=== PATIENT | female | born 1970 | race Caucasian/White ===

== ENCOUNTER 2016-10-27 13:43 | Outpatient (CLI) ==
[2014-06-02 16:40] VITALS: BMI 30.5
[2016-10-27 13:53] LABS: BASOPHILS % (AUTO) 0.5 % (0.0-3.0); EOSINOPHILS # (AUTO) 0.2 K/ul (0.0-0.7); EOSINOPHILS % (AUTO) 1.9 % (0.0-7.0); HEMATOCRIT 41.2 % (37.0-47.0); HEMOGLOBIN 14.1 g/dl (12.0-16.0); IMMATURE GRANULOCYTE % (AUTO) 0.4 % (0.0-5.0); LYMPHOCYTES # (AUTO) 1.5 K/uL (0.60-3.4); LYMPHOCYTES % (AUTO) 18.7 (10.0-50.0); MEAN CORPUSCULAR HEMOGLOBIN 30.9 pg (27.0-31.0); MEAN CORPUSCULAR HGB CONC 34.2 (31.8-35.4); MEAN CORPUSCULAR VOLUME 90.4 fl (81.0-99.0); MONOCYTES # (AUTO) 0.4 K/uL (0.4-2.0); MONOCYTES % (AUTO) 4.8 (0-10); NEUTROPHILS # (AUTO) 5.9 K/ul (2.0-6.9); NEUTROPHILS % (AUTO) 73.7; PLATELET COUNT 266 10^3/uL (140-440); RED BLOOD COUNT 4.56 10^6/ul (4.20-5.40); WHITE BLOOD COUNT 8.06 K/ul (4.6-10.2)
[2016-10-27 13:56] LABS: BILIRUBIN,URINE Negative (NEGATIVE); KETONES,URINE Negative (NEGATIVE); LEUKOCYTE ESTERASE ,URINE Negative (NEGATIVE); NITRITE,URINE Negative (NEGATIVE); PROTEIN,URINE Negative (NEGATIVE); URINE, BLOOD Trace-lysed (NEGATIVE)
[2016-10-27 13:58] LABS: ADD URINE MICROSCOPIC YES
[2016-10-27 14:06] LABS: ALBUMIN 3.9 g/dL (3.4-5.0); ALBUMIN/GLOBULIN RATIO 0.95; BILIRUBIN,TOTAL 0.53 mg/dL (0.00-1.20); CREATININE 0.76 mg/dL (0.60-1.30)
[2016-10-27 14:07] LABS: BUN/CREATININE RATIO 11.84
--- NOTE | 2016-10-27 14:33 | CT ---
EXAM: CT Abdomen without contrast. CT Pelvis without contrast. HISTORY: Tubulointerstitial nephritis. Right flank pain. Previous urinary tract infection. COMPARISON: 06/02/2014. TECHNIQUE: Multiple axial images of the abdomen and pelvis were obtained without intravenous contra st. Images were reformatted in the coronal plane. FINDINGS: Please note that evaluation of the abdominal and pelvic structures is limited due to lack of intravenous contrast. No acute abnormality identified in the lung bases. No acute osseous abnormality detected. The liver, gallbladder, pancreas, spleen, and adrenal glands demonstrate normal contour. No calcifi ed renal stones or hydronephrosis identified. The bowel is normal in course and caliber without evidence for obstruction or inflammatory process. The appendix is normal. Uterus is absent. Left adnexal cyst measures up to 4.1 cm diameter. Urin kavon bladder is mildly distended. The urinary bladder wall may be mildly thickened, and there is sug gestion of perivesical inflammation. No free fluid or free air identified. Atherosclerotic calcifi cations are present. IMPRESSION: 1. Findings suggestive of cystitis. 2. Left adnexal cyst.
== END 2016-10-27 13:44 | disposition home or self-care (01) ==
LOC: EDBD → MERGE 13:43 → RAD 13:43 → UNMERGE 13:43 → RAD 13:44
PROVIDERS: ATTEND Emergency Medicine
DX: N12 Tubulo-interstitial nephritis, not specified as acute or chronic (principal); R35.0 Frequency of micturition
CPT/HCPCS: 36415; 80053; 81001; 85025

== ENCOUNTER 2016-11-01 15:58 | Observation (INO) ==
[2016-11-01] MEDS ORDERED: SODIUM CHLORIDE 1,000 ML IV SCH (16:30)
[2016-11-01] MEDS ORDERED: TYLENOL PO PRN (16:31)
[2016-11-01] MEDS ORDERED: ATROPINE SULFATE PFS IVP PRN (16:31)
[2016-11-01] MEDS ORDERED: MORPHINE 4 MG/ML SYRINGE IVP PRN (16:31)
[2016-11-01] MEDS ORDERED: VISTARIL INJ IM PRN (16:31)
[2016-11-01] MEDS ORDERED: NITROSTAT SL PRN (16:31)
[2016-11-01] MEDS ORDERED: PROAIR HFA IH PRN (16:40)
[2016-11-01] MEDS ORDERED: PSEUDOEPHEDRINE HCL 120 MG PO PRN (16:40)
[2016-11-01 16:50] LABS: BASOPHILS % (AUTO) 0.4 % (0.0-3.0); EOSINOPHILS # (AUTO) 0.1 K/ul (0.0-0.7); EOSINOPHILS % (AUTO) 1.8 % (0.0-7.0); HEMATOCRIT 36.4 % (37.0-47.0); HEMOGLOBIN 12.6 g/dl (12.0-16.0); IMMATURE GRANULOCYTE % (AUTO) 0.4 % (0.0-5.0); LYMPHOCYTES # (AUTO) 2.1 K/uL (0.60-3.4); LYMPHOCYTES % (AUTO) 30.1 (10.0-50.0); MEAN CORPUSCULAR HGB CONC 34.6 (31.8-35.4); MEAN CORPUSCULAR VOLUME 89.4 fl (81.0-99.0); MONOCYTES # (AUTO) 0.4 K/uL (0.4-2.0); MONOCYTES % (AUTO) 5.3 (0-10); NEUTROPHILS # (AUTO) 4.4 K/ul (2.0-6.9); PLATELET COUNT 233 10^3/uL (140-440); RED BLOOD COUNT 4.07 10^6/ul (4.20-5.40); WHITE BLOOD COUNT 7.11 K/ul (4.6-10.2)
--- NOTE | 2016-11-01 16:55 | DI ---
EXAM: CHEST FRONTAL VIEW HISTORY: Chest pain. COMPARISON: None FINDINGS: Heart size and mediastinum within normal limits. Lungs are free of infiltrate. No c onsolidation or pleural fluid. There is no pneumothorax or acute bony finding. IMPRESSION: Findings within normal limits.
[2016-11-01 17:35] VITALS: BMI 35.4
[2016-11-01 17:48] LABS: ALANINE AMINOTRANSFERASE 16 U/L (12-78); ALBUMIN 3.6 g/dL (3.4-5.0); ALKALINE PHOSPHATASE 76 U/L (42-98); ASPARTATE AMINO TRANSFERASE 12 U/L (15-37); BILIRUBIN,TOTAL 0.25 mg/dL (0.00-1.20); BLOOD UREA NITROGEN 6 mg/dL (7-18); BUN/CREATININE RATIO 9.09; CALCIUM 9.3 mg/dL (8.2-10.2); CARBON DIOXIDE 21 mmol/L (21-32); CHLORIDE 107 mmol/L (98-107); CHOL/HDL RATIO 5.3 (4.5-5.5); CHOLESTEROL 201 mg/dL (0-200); CREATINE KINASE 46 U/L; CREATININE 0.66 mg/dL (0.60-1.30); GLUCOSE 80 mg/dL (70-110); HDL CHOLESTEROL 38 mg/dL (35-80); MYOGLOBIN 11 ng/ml; SODIUM 139 mmol/L (136-145); TOTAL PROTEIN 7.2 g/dL (6.4-8.2); TRIGLYCERIDES 111 mg/dL (30-150); VLDL CHOLESTEROL 22 mg/dL (2-30)
[2016-11-01] MEDS: PROTONIX PO SCH (18:05)
[2016-11-01] MEDS: LOVENOX SUBCUT SCH (18:06)
[2016-11-01 19:25] LABS: BILIRUBIN,URINE Negative (NEGATIVE); KETONES,URINE Negative (NEGATIVE); LEUKOCYTE ESTERASE ,URINE Negative (NEGATIVE); NITRITE,URINE Negative (NEGATIVE); PH,URINE 5.5 (5-9); PROTEIN,URINE Negative (NEGATIVE); URINE, BLOOD 1+ (NEGATIVE)
[2016-11-01 19:40] LABS: ADD URINE MICROSCOPIC YES
[2016-11-01] MEDS ORDERED: CARAFATE ONE (20:36)
[2016-11-01] MEDS: MACROBID PO SCH (20:45)
[2016-11-01] MEDS: CARAFATE PO SCH (20:47)
[2016-11-02 01:26] LABS: CREATINE KINASE 52 U/L; MYOGLOBIN 12 ng/ml
[2016-11-02 04:44] LABS: BASOPHILS % (AUTO) 0.3 % (0.0-3.0); EOSINOPHILS # (AUTO) 0.2 K/ul (0.0-0.7); EOSINOPHILS % (AUTO) 3.3 % (0.0-7.0); HEMATOCRIT 35.1 % (37.0-47.0); HEMOGLOBIN 12.1 g/dl (12.0-16.0); IMMATURE GRANULOCYTE % (AUTO) 0.3 % (0.0-5.0); LYMPHOCYTES # (AUTO) 2.9 K/uL (0.60-3.4); LYMPHOCYTES % (AUTO) 46.4 (10.0-50.0); MEAN CORPUSCULAR HEMOGLOBIN 30.9 pg (27.0-31.0); MEAN CORPUSCULAR HGB CONC 34.5 (31.8-35.4); MEAN CORPUSCULAR VOLUME 89.5 fl (81.0-99.0); MONOCYTES # (AUTO) 0.4 K/uL (0.4-2.0); NEUTROPHILS # (AUTO) 2.8 K/ul (2.0-6.9); NEUTROPHILS % (AUTO) 43.7; PLATELET COUNT 207 10^3/uL (140-440); RED BLOOD COUNT 3.92 10^6/ul (4.20-5.40); WHITE BLOOD COUNT 6.33 K/ul (4.6-10.2)
[2016-11-02 05:03] LABS: ALBUMIN 3.1 g/dL (3.4-5.0); ANION GAP 12.6; BILIRUBIN,TOTAL 0.15 mg/dL (0.00-1.20); BUN/CREATININE RATIO 12.12; CALCIUM 8.7 mg/dL (8.2-10.2); CREATININE 0.66 mg/dL (0.60-1.30); POTASSIUM 3.6 mmol/L (3.5-5.10); TOTAL PROTEIN 6.2 g/dL (6.4-8.2)
[2016-11-02] MEDS ORDERED: CARAFATE ONE (05:34)
[2016-11-02] MEDS: PROTONIX PO SCH (05:49)
[2016-11-02] MEDS: CARAFATE PO SCH (05:51)
[2016-11-02] MEDS ORDERED: SUDAFED PO PRN ×2 (06:57→06:58)
[2016-11-02] MEDS ORDERED: ASPIRIN EC PO SCH (08:00)
[2016-11-02] MEDS: LOVENOX SUBCUT SCH (08:45)
[2016-11-02] MEDS: MACROBID PO SCH (08:45)
[2016-11-02 10:13] VITALS: BP 100/70; TEMP 97.5
--- NOTE | 2016-11-02 11:52 | CONS ---
DATE OF CONSULTATION: 11/01/16 REASON FOR CONSULTATION: Chest pain HISTORY OF PRESENT ILLNESS: The patient is a 45 year old white female was seen in [facility] was complaint of having chest heaviness last three to four days duration. The patient's chest heaviness was more or less constant and unrelated to exertion. The patient says that she has a lot of symptoms of reflux disease and eats Tums like crazy. The patient also gives history of having cardiac work up six years ago when she was having palpation in [place] by [employer]. At that time her ultrasound of the heart and stress test were normal according to her. REVIEW OF SYSTEMS: CONSTITUTIONAL: No night sweats. No fatigue, malaise, lethargy. No fever or chills. HEENT: Eyes: No visual changes. No eye pain. No eye discharge. ENT: No runny nose. No epistaxis. No sinus pain. No sore throat. No odynophagia. No ear pain. No congestion. RESPIRATORY: Mild cough, no congestion. No hemoptysis. CARDIOVASCULAR: No angina symptoms. No CHF symptoms. No atypical chest pain for CAD. No palpitations. No shortness of breath. Chest heaviness and tightness in the center of the chest unrelated to exertion. No radiation. No sweating. No weakness. No PND. No Orthopnea. GASTROINTESTINAL: No abdominal pain. No nausea or vomiting. No diarrhea or constipation. No hematemesis. No hematochezia. Reflux disease type of symptoms all the time off and on day and night. No melena. GENITOURINARY: No urgency. No frequency. No dysuria. No hematuria. No obstructive symptoms. No discharge. No pain. No significant abnormal bleeding. MUSCULOSKELETAL: No musculoskeletal pain. No joint swelling. NEUROLOGICAL: No headache. No neck pain. No syncope. No seizures. No dizziness. PSYCHIATRIC: Not anxious. No depression. No suicidal thoughts. No homicidal thoughts. SKIN: No rash. No lesions. No wounds. ENDOCRINE: No unexplained weight loss. No weight gain. HEMATOLOGIC/LYMPHATIC: No anemia. No purpura. No petechiae. No prolonged or excessive bleeding. No palpable lymph nodes. MEDICATIONS: Albuterol ProAir HFA one puff four times a day PRN Macrobid 100mcg PO twice a day for seven day for UTI Aspirin 81mg PO daily Pseudoephedrine 120mg PRN ALLERGIES:. Sulfa PAST MEDICAL HISTORY/PAST SURGICAL HISTORY: Cystocele's operated upon in April 2016 Chronic lung disease History of sinus problems SOCIAL/PERSONAL/FAMILY HISTORY: The patient is living with the friend and the mother with her kids. She smokes more than a pack a day and no alcohol abuse. No history of drug abuse. She does all activity of daily living. Independent. Family History the patient has history of having brother 46 years of age had massive heart attack and . Father had ME at 39 with five vessel bypass. PHYSICAL EXAMINATION: GENERAL: The patient is oriented to time,place and person. VITAL SIGNS: Temperature 97.2, pulse 68, respiratory rate 18, blood pressure 130 /70 and pulse ox 97%. HEENT: Head normocephalic, atraumatic. Eyes: Extraocular muscles are intact. Pupils are equal, round and reactive to light and accommodation. Ears: No lesions. Nose appeared normal. Throat: No exudate or erythema. NECK: Supple. No JVD, no carotid bruit. No lymphadenopathy or thyromegaly. LUNGS: Clear to auscultation. Percussion note normal. Chest symmetrical. HEART: S1, S2, no S3. No murmurs. No cyanosis or clubbing. No ascites. Pulses: Dorsalis pedis and posterior tibial pulses +2 both sides. PMI not palpable. ABDOMEN: Soft. Nontender. Bowel sounds active. No CVA tenderness. No mass felt. EXTREMITIES: No edema. Full range of motion of all extremities, equal. NEUROLOGIC: No focal deficit. Cranial nerves II through XII are grossly intact. No headache, no double vision or headache. SKIN: Not dry. Intact. Turgor - normal. LYMPHATIC: No palpable lymph nodes/no lymphedema. MUSCULOSKELETAL: Normal joints with no swelling. Muscle tone is normal. LABS: hgb 12.6, hct 36, WBC 7,100 normal differential, creatinine 0.6, BUN 6, potassium 4. Cardiac markers negative. Telemetry sinus rhythm, no ST-T wave changes. EKG sinus rhythm with ST-T wave changes in precordial leads been nonspecific could be ischemia. ASSESSMENT: 1. Chest heaviness and tightness;Risk factors for coronary artery disease, sedentary life style, smoking and strong family history of heart disease, Dyslipidemia and obesity with BMI of 35%. RECOMMENDATIONS: 1. Counseling for smoking done. Advised to quit smoking. 2. With strong history the Non-HDL should be less than 100 discussed with the patient. 3. Will do echocardiogram to evaluate LV function 4. Will do stress echo in the morning with 2D-Mode echo 5. Continue aspirin 6. Agreed with Protonix 7. Will add Carafate 8. All the risk factors for CAD discussed and how to modify them Thanks for referral, will follow. VINEET
[2016-11-02] MEDS ORDERED: LIPITOR PO SCH (21:00)
--- NOTE | 2016-11-03 08:42 | STRESSECHO ---
Date of Test: [] Reason for Exam: [] Ordering Physician: [] Current Medications: [] Physical Findings: [] Resting EKG: [] Target Heart Rate: [] STAGE MPH/GRADE HEART RATE BPM BLOOD PRESSURE mmhg RHYTHM S-T SEGMENT +/- UP DOWN SYMPTOMS,COMMENTS At Rest [] [] [] [] [] 1 1.7/10% [] [] [] [] [] 2 2.5/12% [] [] [] [] [] 3 3.4/14% [] [] [] [] [] 4 4.2/16% [] [] [] [] [] 5 5.0/18% [] [] [] [] [] Immediately after [] [] [] [] [] Durations of Exercise: [] Maximum Heart Rate Reached: [] Reason for Termination: [] Minutes Post Exercise: [] HeartRate: [] Blood Pressure: [] Minutes Post Exercise: [] HeartRate: [] Blood Pressure: [] Minutes Post Exercise: [] HeartRate: [] Blood Pressure: [] INTERPRETATION: 1. [] 2. [] 3. [] 4. [] MTDD
--- NOTE | 2016-11-03 08:53 | ECHOSTRESS ---
Date of Exam: 11/02/16 Ordering Physician: ANA PAULA Reason for Echo: CHEST PAIN, DYSLIPIDEMIA M-Mode Normal Adult Results LV Dimensions Normal Adult Results AoV Opening excursions >1.6 LVEDD-base- 3.5-5.8 Ao root dimensions 2.0-3.7 LVESD-base- 3.1-4.6 L. Atrium dimensions 1.9-3.8 Post. Wall thickness 0.8-1.1 IV septum (thickness) 0.7-1.2 Post. Wall excursion 0.72-1.3 Septal motion Systolic motion R. Ventricular cavity 1.5-2.0 LVEF 60% Paradoxical septal wall motion 2-D: NORMAL LEFT VENTRICULAR CONTRACTILITY--RESTING AND POST EXERCISE M-MODE: MV: AV: TV: PV: CHAMBER SIZE: WALL MOTION: NORMAL LEFT VENTRICULAR CONTRACTILITY--RESTING AND POST EXERCISE PERICARDIUM: INTERPRETATION: 1. NORMAL LEFT VENTRICULAR CONTRACTILITY--RESTING AND POST EXERCISE MTDD
--- NOTE | 2016-11-03 09:01 | STRESSECHO ---
Date of Test: 11/02/16 Reason for Exam: CHEST PAIN Ordering Physician: MINA Current Medications: ALBUTEROL, MACROBID Physical Findings: SINUS RHYTHM/NO ACUTE CHANGES Resting EKG: SINUS RHYTHM/NO ACUTE CHANGES Target Heart Rate: 148/175 STAGE MPH/GRADE HEART RATE BPM BLOOD PRESSURE mmhg RHYTHM S-T SEGMENT +/- UP DOWN SYMPTOMS,COMMENTS At Rest 80 118/72 SR X NONE 1 1.7/10% 130 130/80 SR X NONE 2 2.5/12% 3 3.4/14% 4 4.2/16% 5 5.0/18% Immediately after 152 138/80 SR X FATIGUE Durations of Exercise: 5:01 Maximum Heart Rate Reached: 152 Reason for Termination: FATIGUE 3 MIN POST EXERCISE: HR 80 BPM, BP 120/68 MMHG, SR, +/- INTERPRETATION: 99% OXYGEN SATURATION WITH EXERCISE ON ROOM AIR METS 7.0 1. NO EVIDENCE OF ISCHEMIA BY ST-T WAVE 2. NO CHEST PAIN OR CHEST DISCOMFORT 3. BLOOD PRESSURE RESPONSE NORMAL 4. NO ARRHYTHMIAS NORMAL LEFT VENTRICULAR CONTRACTILITY--RESTING AND POST EXERCISE MTDD
--- NOTE | 2016-11-03 09:05 | ECHO2D ---
Date of Exam: 11/02/16 [facility] Reason for Echo: CHEST PAIN M-Mode Normal Adult Results LV Dimensions Normal Adult Results AoV Opening excursions >1.6 >1.6 LVEDD-base- 3.5-5.8 5.2 Ao root dimensions 2.0-3.7 3.3 LVESD-base- 3.1-4.6 L. Atrium dimensions 1.9-3.8 3.5 Post. Wall thickness 0.8-1.1 1.2 IV septum (thickness) 0.7-1.2 1.2 Post. Wall excursion 0.72-1.3 NORMAL Septal motion NORMAL Systolic motion R. Ventricular cavity 1.5-2.0 NORMAL LVEF 60% 58% Paradoxical septal wall motion NORMAL 2-D : 2-D M Mode Echocardiogram was performed using apical four chamber and left parasternal long and short axis views. Mitral, tricuspid and aortic valves appear to be normal. Contractility of the left ventricle seems to be normal, so is the cavity size. Left atrial cavity size and aortic root appear to be normal. There is no pericardial effusion. There is no thrombus noted in the left ventricular or left aortic cavity. No mitral valve prolapse noted. M-MODE: MV: NORMAL AV: NORMAL TV: NORMAL PV: CHAMBER SIZE: NORMAL WALL MOTION: NORMAL PERICARDIUM: NORMAL INTERPRETATION: 1. BORDERLINE LEFT VENTRICULAR HYPERTROPHY 2. NORMAL VALVES 3. NORMAL LEFT VENTRICULAR CONTRACTILITY MTDD
--- NOTE | 2016-11-03 11:16 | CONS ---
DATE OF SERVICE: 11/02/16 CONSULT FOLLOWUP REASON FOR CONSULTATION: Chest pain. REVIEW OF SYSTEMS: CONSTITUTIONAL: No night sweats. No fatigue, malaise, lethargy. No fever or chills. HEENT: Eyes: No visual changes. No eye pain. No eye discharge. ENT: No runny nose. No epistaxis. No sinus pain. No sore throat. No odynophagia. No ear pain. No congestion. RESPIRATORY: No cough, no congestion. No hemoptysis. CARDIOVASCULAR: No angina symptoms. No CHF symptoms. No chest pain today. No palpitations. No shortness of breath. GASTROINTESTINAL: No abdominal pain. No nausea or vomiting. No diarrhea or constipation. No hematemesis. No hematochezia. GENITOURINARY: No urgency. No frequency. No dysuria. No hematuria. No obstructive symptoms. No discharge. No pain. No significant abnormal bleeding. MUSCULOSKELETAL: No musculoskeletal pain. No joint swelling. No arthritis. NEUROLOGICAL: No headache. No neck pain. No syncope. No seizures. No dizziness. PSYCHIATRIC: Not anxious. No depression. No suicidal thoughts. No homicidal thoughts. SKIN: No rash. No lesions. No wounds. ENDOCRINE: No unexplained weight loss. No weight gain. HEMATOLOGIC/LYMPHATIC: No anemia. No purpura. No petechiae. No prolonged or excessive bleeding. No palpable lymph nodes. PHYSICAL EXAMINATION: GENERAL: The patient is oriented to time, place and person. VITAL SIGNS: Temperature 97, pulse 67, respiratory rate 16, BP 113/72, pulse ox 97%. HEENT: Head normocephalic, atraumatic. Eyes: Extraocular muscles are intact. Pupils are equal, round and reactive to light and accommodation. Ears: No lesions. Nose appeared normal. Throat: No exudate or erythema. NECK: Supple. No JVD, no carotid bruit. No lymphadenopathy or thyromegaly. LUNGS: Clear to auscultation. Percussion note normal. Chest symmetrical. HEART: S1, S2, no S3. No murmurs. No cyanosis or clubbing. No ascites. Pulses: Dorsalis pedis and posterior tibial pulses +1 to +2 both sides. ABDOMEN: Soft. Nontender. Bowel sounds active. No CVA tenderness. No mass felt. EXTREMITIES: No edema. Full range of motion of all extremities, equal. NEUROLOGIC: No focal deficit. Cranial nerves II through XII are grossly intact. No headache, no double vision or headache. SKIN: Not dry. Intact. Turgor - normal. LYMPHATIC: No palpable lymph nodes/no lymphedema. MUSCULOSKELETAL: Normal joints with no swelling. Muscle tone is normal. LAB TESTS: Hemoglobin 12, hematocrit 35, WBC 6,300, normal differential. Creatinine 0.6, BUN 8, potassium 3.6. BNP 39 normal. TSH normal. Echocardiogram - borderline LVH otherwise normal LV contractility. Stress echo - no ischemia. Good exercise tolerance. ASSESSMENT: 1. CHEST PAIN SEEMS TO BE NONCARDIAC WITH NEGATIVE ECHO, STRESS ECHO AND CARDIAC MARKERS. 2. MULTIPLE CAD RISK FACTORS LIKE SMOKING, OBESITY, SEDENTARY LIFESTYLE, STRONG FAMILY HISTORY OF HEART DISEASE, DYSLIPIDEMIA. RECOMMENDATIONS: 1. Discussed with attending. Will start Statin and the goal will be non HDL less than 100. 2. Counseling for smoking done. 3. Weight loss diet counseling done. 4. All the reports discussed with the patient. Followup with primary care advised. CONDITION: Stable. MTDD
--- NOTE | 2016-11-22 12:50 | DS ---
DATE OF SERVICE: 11/02/2016 FINAL DIAGNOSIS: 1. CHEST PAIN, NONCARDIAC 2. DYSLIPIDEMIA 3. FAMILY HISTORY OF CORONARY ARTERY DISEASE 4. PROTEIN C DEFICIENCY 5. HISTORY OF TIA 6. OBESITY 7. HYSTERECTOMY PLAN: 1. Discharge the patient home. 2. Follow up in the [facility] on Tuesday. 3. Outpatient PFT's. 4. Diet-cardiac and healthy. 5. Activity as much as tolerated. DISEASE SPECIFIC EDUCATION: About chest pain, coronary artery disease risk, dyslipidemia and cholesterol and the statin medications and risk myalgia was discussed with the patient in detail. The patient verbalized understanding. HOSPITAL COURSE: Niurka Montenegro is a 45 year old female who came to the office with chest tightness, palpitations and pain going to the left wrist. The patient was worried as she has a strong family history of coronary artery disease. Her father had a heart attack at the age of 45. In view of such a risk factor, the patient was admitted to observation to [facility]. We did the lipid profile, TSH and Dr. Hernandez consultation. He was gracious enough to come and see the patient and ordered the stress test and echocardiogram. The patient was given some Protonix and Carafate, which did resolve the pain. Two set of cardiac enzymes were negative. Total cholesterol was 201, TSH 1.021. Echo and stress echo was negative for any acute coronary problems. Ejection fraction was normal. The patient was discussed about lifestyle modification, weight loss and diet. The patient did tell that she has really bad acid reflux for which she eats almost 20 TUMS every day. Lifestyle modification, weight loss and diet was discussed again. She will be started on Lipitor 10 mg p.o. daily, Carafate hc and hs and Zantac 150 p.o. twice daily. We will be seeing the patient in the [facility] within one week. Time spent on the patient is more than 55-60 minutes today. VINEET
== END 2016-11-02 12:45 | disposition home or self-care (01) ==
LOC: EDBD → MERGE 15:58 → UNMERGE 15:58 → MEDSURG B 15:58
PROVIDERS: ADMIT Emergency Medicine; ATTEND Emergency Medicine
DX: R07.89 Other chest pain (principal); E78.5 Hyperlipidemia, unspecified; Z82.49 Family history of ischemic heart disease and other diseases of the circulatory system; D68.59 Other primary thrombophilia; E66.9 Obesity, unspecified; F17.200 Nicotine dependence, unspecified, uncomplicated; Z86.73 Personal history of transient ischemic attack (TIA), and cerebral infarction without residual deficits
CPT/HCPCS: 36415; 80053; 80061; 81001; 82550; 83874; 83880; 84443; 84484; 85025; 85379; 93005; 93010

== ENCOUNTER 2016-11-05 09:04 | Outpatient (CLI) | END 2016-11-05 09:05 | disposition home or self-care (01) | LOC: CAR 09:04 | PROVIDERS: ATTEND Emergency Medicine | DX: R06.02 Shortness of breath (principal); R05 Cough ==

== ENCOUNTER 2017-01-10 08:14 | Outpatient (CLI) ==
--- NOTE | 2017-01-10 08:48 | US ---
EXAM: Right upper quadrant abdominal ultrasound. History: Right upper quadrant abdominal pain. Comparison: CT abdomen pelvis 10/27/2016 Technique: Multiple sonographic images through the abdomen were obtained. Color duplex Doppler was used to interrogate vascular flow. Findings: The liver is not enlarged. No focal liver lesions identified sonographically. There is antegrade fl ow within the main portal vein. Pancreas is not well visualized due to obscuration by bowel gas. No shadowing gallstones. Gallbladder wall is not thickened. Common bile duct measures 0.0 4 cm in c aliber. Limited visualization of the right kidney demonstrates no evidence for hydronephrosis. No a bdominal ascites. Impression: Unremarkable exam.
== END 2017-01-10 08:15 | disposition home or self-care (01) ==
LOC: RAD 08:14
PROVIDERS: ATTEND Emergency Medicine
DX: R10.11 Right upper quadrant pain (principal)

== ENCOUNTER 2017-01-21 09:02 | Outpatient (CLI) ==
--- NOTE | 2017-01-21 09:41 | DI ---
EXAM: Chest two views HISTORY: Bronchitis, nonspecified as acute or chronic COMPARISON: 11/01/2016 TECHNIQUE: Two views of the chest were performed FINDINGS: The lungs are clear. There is no pleural effusion or pneumothorax. The heart is normal i n size. The mediastinal contour is normal. There are no acute abnormalities of the bones. IMPRESSION: No acute cardiopulmonary process.
== END 2017-01-21 09:03 | disposition home or self-care (01) ==
LOC: RAD 09:02
PROVIDERS: ATTEND Nurse Practitioner Family
DX: J40 Bronchitis, not specified as acute or chronic (principal)

== ENCOUNTER 2017-12-20 12:20 | Outpatient (CLI) | END 2017-12-20 12:21 | disposition home or self-care (01) | LOC: RHC-LAB 12:20 | PROVIDERS: ATTEND Nurse Practitioner Family | DX: S30.860A Insect bite (nonvenomous) of lower back and pelvis, initial encounter (principal); R53.83 Other fatigue; W57.XXXA Bitten or stung by nonvenomous insect and other nonvenomous arthropods, initial encounter | CPT/HCPCS: 36415; 80053; 85025; 86617; 86757; 87798 ==

== ENCOUNTER 2018-01-14 21:25 | Emergency (ER) ==
[2018-01-14 21:36] VITALS: BP 169/100; TEMP 98.6; BMI 33.7
[2018-01-14] MEDS ORDERED: ZOFRAN 4 MG/2 ML IVP STA (22:18)
[2018-01-14] MEDS ORDERED: PROTONIX IV IVP STA (22:18)
[2018-01-14] MEDS ORDERED: MORPHINE 4 MG/ML VIAL IVP STA (22:18)
[2018-01-14] MEDS ORDERED: SODIUM CHLORIDE 1,000 ML IV STA (22:18)
[2018-01-14] MEDS ORDERED: MORPHINE 2 MG/ML SYRINGE ONE (22:22)
--- NOTE | 2018-01-14 22:27 | ED.PDOC ---
General ED Provider: Dr. ADAMARIS HALE Chief Complaint: Chest Pain Stated Complaint: Patient is a 47 year old who comes to the ER with complaints of chest pain off and on for 3 days. Rates that pain as 5/10, describes it as Pressure with radiation to the left and down to the left thumb. Time Seen by Physician: 22:00 Mode of Arrival: Walk-In Information Source: Patient Primary Care Provider: [facility] Nursing and Triage Documentation Reviewed and Agree: Yes Does patient meet sepsis criteria?: No System Inflammatory Response Syndrome: Not Applicable Sepsis Protocol: For patient's 13 years and over: Temp is 96.8 and below OR 101 and greater Pulse >90 BPM Resp >20/minute Acutely Altered Mental Status Are patient's symptoms suggestive of a new infection, such as: -Pneumonia -Skin, Soft Tissue -Endocarditis -UTI -Bone, Joint Infection -Implantable Device -Acute Abdominal Infection -Wound Infection -Meningitis -Blood Stream Catheter Infection -Unknown Cardiovascular Complaint Exam - Chest Pain Complaint/Exam Onset: Gradual Duration: 2-3 days Symptoms Are: Still present Timing: Intermittent Initial Severity: Severe Current Severity: Moderate Location: Reports: Midsternal Pain Radiates: Reports: Back, Left shoulder, Left arm Character: Reports: Heaviness Aggravating: Reports: None Alleviating: Reports: Spontaneous resolution (but only partially ) Associated Signs and Symptoms: Reports: Nausea, Abdominal pain (epigastric area ). Denies: Diaphoresis, Vomiting Related Surgical History: Reports: None AMI/ACS Risk Factors: Reports: Family history, Smoking, Dyslipidemia TAD Risk Factors: Reports: Smoking Pulmonary Embolism Risk Factors: Reports: None Prior Care for this Complaint: No Recent Stress Test: No Recent Echo/LV Function: No JVD Present: No Subcutaneous Emphysema Present: No Diminshed Breath Sounds: No Reproducible Chest Wall Pain: No Bilateral Pulses Present: No Unequal Pulses Noted: No If Risk Factors for AMI/ACS Consider: EKG, Cardiac Enzymes, Oxygen Review of Systems - Review Of Systems Constitutional: Reports: No symptoms Respiratory: Reports: No symptoms Cardiac: Reports: Chest pain GI: Reports: Abdominal pain, Nausea, Poor appetite : Reports: No symptoms Musculoskeletal: Reports: No symptoms Skin: Reports: No symptoms Neurological: Reports: Anxiety Endocrine: Reports: No symptoms Hematologic/Lymphatic: Reports: No symptoms All Other Systems: Reviewed and Negative Past Medical History - Past Medical History Endocrine: Reports: DM 2 (gestational ), Dyslipidemia Cardiovascular: Reports: None Respiratory: Reports: None Hematological: Reports: None Gastrointestinal: Reports: GERD Genitourinary: Reports: None Neuro/Psych: Reports: Anxiety Musculoskeletal: Reports: None Cancer: Reports: Breast Last Menstrual Period: PT HAS HAD A HYSTERECTOMY - Surgical History General Surgical History: Reports: Hysterectomy, Tubal ligation, Other (breast lumpectomy, Right eye lens replacement. ) - Family History Family History: Reports: Unknown - Social History Smoking Status: Current every day smoker, Heavy tobacco smoker Hx Substance Use: No Alcohol Screening: Occasionally - Immunizations Tetanus Shot up to Date: Yes Physical Exam - Physical Exam Appearance: Ill-appearing Ill-appearing: Mild Pain Distress: Moderate Neck: Supple Respiratory: Airway patent, Breath sounds clear, Breath sounds equal, Respirations nonlabored Cardiovascular: RRR, Pulses normal, No rub, No murmur GI/: Soft, Nontender, No masses, Bowel sounds normal, No Organomegaly Musculoskeletal: Normal strength, ROM intact, No edema, No calf tenderness Skin: Warm, Dry, Normal color Neurological: Alert, Oriented Psychiatric: Anxious Interpretation - Radiology Interpretation Radiology Interpretation By: ED Physician Radiology Results: Negative Exam Interpreted: CXR Radiology Interpretation By: Radiologist Radiology Results: Negative (except fecal statis) Exam Interpreted: CT Scan (Abdomen and Pelvis ) - EKG Interpretation Time of EKG #1: 21:52 Rate: Normal Rhythm: Sinus Ectopy: None Alexander: NL ST Segment: Other (T wake inversion on V1 , V2, V3) Interpretation: Anterior ischemia EKG Comparison: No significant changes (from on done in 03/01/2017) Re-Evaluation - Re-Evaluation Time of Re-Evaluation: 00:30 Status: Improved Vital Signs Stable: Yes Pain Level: pain gone immediatly after taking GI cocktail. Critical Care Note - Critical Care Note Total Time (mins): 35 Comments: reviewed Lab data and previous stress test and EKG done in 2017 Course - Course Hematology/Chemistry: 01/14/18 22:25 01/14/18 22:25 Orders, Labs, Meds: Lab Review 01/14/18 01/14/18 01/14/18 22:25 22:25 22:25 WBC 9.07 RBC 4.23 Hgb 13.1 Hct 38.3 MCV 90.5 MCH 31.0 MCHC 34.2 RDW Coeff of Jose 12.9 Plt Count 224 Immature Gran % (Auto) 0.3 Neut % (Auto) 50.3 Lymph % (Auto) 40.0 [place] % (Auto) 6.2 Eos % (Auto) 2.9 Baso % (Auto) 0.3 Immature Gran # (Auto) 0.0 Neut # (Auto) 4.6 Lymph # (Auto) 3.6 H [place] # (Auto) 0.6 Eos # (Auto) 0.3 Baso # (Auto) 0.0 D-Dimer (Manual) 436.38 Sodium 138.0 Potassium 3.63 Chloride 104.3 Carbon Dioxide 26.7 Anion Gap 10.63 BUN 17.7 H Creatinine 0.91 Estimated GFR (MDRD) 66.00 BUN/Creatinine Ratio 19.45 Glucose 99.0 Calcium 9.58 Total Bilirubin 0.23 AST 36.8 H ALT 17.6 Alkaline Phosphatase 71.4 Total Creatine Kinase 43.7 Troponin I < 0.012 Total Protein 7.92 Albumin 4.10 Globulin 3.82 Albumin/Globulin Ratio 1.07 Amylase 63.1 Lipase 60.8 Urine Color Urine Clarity Urine pH Ur Specific [place] Urine Protein Urine Glucose (UA) Urine Ketones Urine Blood Urine Nitrite Urine Bilirubin Urine Urobilinogen Ur Leukocyte Esterase Urine Microscopic RBC Ur Squamous Epith Cells 01/14/18 01/15/18 22:50 00:15 WBC RBC Hgb Hct MCV MCH MCHC RDW Coeff of Jose Plt Count Immature Gran % (Auto) Neut % (Auto) Lymph % (Auto) [place] % (Auto) Eos % (Auto) Baso % (Auto) Immature Gran # (Auto) Neut # (Auto) Lymph # (Auto) [place] # (Auto) Eos # (Auto) Baso # (Auto) D-Dimer (Manual) Sodium Potassium Chloride Carbon Dioxide Anion Gap BUN Creatinine Estimated GFR (MDRD) BUN/Creatinine Ratio Glucose Calcium Total Bilirubin AST ALT Alkaline Phosphatase Total Creatine Kinase Troponin I < 0.012 Total Protein Albumin Globulin Albumin/Globulin Ratio Amylase Lipase Urine Color Yellow Urine Clarity Clear Urine pH 6.0 Ur Specific [place] 1.010 Urine Protein Negative Urine Glucose (UA) Negative Urine Ketones Negative Urine Blood 1+ Urine Nitrite Negative Urine Bilirubin Negative Urine Urobilinogen 0.2 Ur Leukocyte Esterase Negative Urine Microscopic RBC 0-2 Ur Squamous Epith Cells 2-5 Orders Category Date Time Status EKG-(ED ONLY) Stat CARDIO 01/14/18 22:19 Completed ED IV/MEDIPORT/POWERPORT .ONCE EMERGENCY 01/14/18 22:18 Active AMYLASE Stat LAB 01/14/18 22:25 Completed CBC W/ AUTO DIFF Stat LAB 01/14/18 22:25 Completed COMPREHENSIVE METABOLIC PANEL Stat LAB 01/14/18 22:25 Completed CREATINE KINASE Stat LAB 01/14/18 22:25 Completed D-DIMER Stat LAB 01/14/18 22:25 Completed LIPASE Stat LAB 01/14/18 22:25 Completed TROPONIN I Stat LAB 01/14/18 22:25 Completed TROPONIN I Stat LAB 01/15/18 00:15 Completed URINALYSIS C & S IF INDICATED Stat LAB 01/14/18 22:50 Completed 0.9 % Sodium Chloride [Saline Flush] MEDS 01/14/18 22:18 Ordered 1 syr IVF PRN PRN Mag-Al Plus//Lidocaine [Gi Cocktail] MEDS 01/14/18 23:39 Discontinued 30 ml PO ONCE STA Morphine Sulfate [Morphine 2 mg/ml Syringe] MEDS 01/14/18 22:22 Discontinued 4 mg .ROUTE .STK-MED ONE Morphine Sulfate [Morphine 4 mg/ml Vial] MEDS 01/14/18 22:18 Discontinued 4 mg IVP ONCE STA Nitroglycerin [Nitrostat] MEDS 01/14/18 23:23 Discontinued 0.4 mg SL ONCE STA Ondansetron HCl/Pf [Zofran 4 mg/2 ml] MEDS 01/14/18 22:18 Discontinued 4 mg IVP ONCE STA Pantoprazole Sodium [Protonix IV] MEDS 01/14/18 22:18 Discontinued 40 mg IVP ONCE STA Sodium Chloride 0.9% [Sodium Chloride] 1,000 ml MEDS 01/14/18 22:18 Discontinued IV BOLUS CHEST, 2 VIEWS PA & LAT Stat RADS 01/14/18 22:[address] ABD/PEL WO RENAL STONE PROT Stat RADS 01/14/18 22:18 Completed Medications Generic Name Dose Route Start Last Admin Trade Name Freq PRN Reason Stop Dose Admin Sodium Chloride 1 syr 01/14/18 22:18 01/14/18 22:49 Saline Flush IVF 1 syr PRN PRN Administration To flush IV Discontinued Medications Generic Name Dose Route Start Last Admin Trade Name Freq PRN Reason Stop Dose Admin Al Hydroxide/Mg Hydroxide 30 ml 01/14/18 23:39 01/14/18 23:43 Gi Cocktail PO 01/14/18 23:40 30 ml ONCE STA Administration Sodium Chloride 1,000 mls @ 1,000 mls/hr 01/14/18 22:18 01/14/18 22:41 Sodium Chloride IV 01/14/18 23:17 1,000 mls/hr BOLUS STA Administration Morphine Sulfate 4 mg 01/14/18 22:18 Morphine 4 Mg/Ml Vial IVP 01/14/18 22:19 ONCE STA Nitroglycerin 0.4 mg 01/14/18 23:23 01/14/18 23:27 Nitrostat SL 01/14/18 23:24 0.4 mg ONCE STA Administration Ondansetron HCl 4 mg 01/14/18 22:18 01/14/18 22:44 Zofran 4 Mg/2 Ml IVP 01/14/18 22:19 4 mg ONCE STA Administration Pantoprazole Sodium 40 mg 01/14/18 22:18 01/14/18 22:46 Protonix Iv IVP 01/14/18 22:19 40 mg ONCE STA Administration Vital Signs: Temp Pulse Resp BP Pulse Ox 01/14/18 21:25 98.6 F 87 18 169/100 H 96 SAMARIA Risk Score Age >/= 65: No >/= 3 CAD Risk Factors: No Known CAD (Stenosis >/= 50%): No ASA Use in Past 7 Days: Yes Severe Angina (>/= 2 episodes in 24 hours): Yes EKG ST Changes >/= 0.5mm: No Postive Cardiac Marker: No SAMARIA Total Score: 2 SAMARIA Risk Score: Risk Score Odds of by 30D 0 0.1 (0.1-0.2) 1 0.3 (0.2-0.3) 2 0.4 (0.3-0.5) 3 0.7 (0.6-0.9) 4 1.2 (1.0-1.5) 5 2.2 (1.9-2.6) 6 3.0 (2.5-3.6) 7 4.8 (3.8-6.1) Departure - Departure Time of Disposition: 00:52 Disposition: HOME SELF-CARE Discharge Problem: Dyspepsia Instructions: Indigestion (ED) Condition: Stable Pt referred to PMD for follow-up: Yes IPMP verified?: No Additional Instructions: Take Bentyl as needed for cramping Continue Omeprozole as prescribed. Return if worse Follow up with PCP in 3 days. Prescriptions: Dicyclomine HCl [Bentyl] 10 mg PO TID PRN #20 capsule PRN Reason: Abdominal Pain Allergies/Adverse Reactions: Allergies Sulfa (Sulfonamide Antibiotics) Allergy (Severe, Verified 01/14/18 21:36) stomach pains Home Medications: Ambulatory Orders Aspirin [Aspir 81] 81 mg PO DAILY tab-cap 11/01/16 Atorvastatin Calcium [Lipitor] 10 mg PO BEDTIME #30 tablet 11/02/16 Omeprazole 20 mg PO DAILY PRN 01/14/18 Dicyclomine HCl [Bentyl] 10 mg PO TID PRN #20 capsule 01/15/18 Disposition Discussed With: Patient, Family
--- NOTE | 2018-01-14 23:05 | CT ---
EXAM: CT of the abdomen and pelvis without contrast. HISTORY: Abdominal pain radiating to back. PROCEDURE: Contiguous axial CT images of the abdomen and pelvis without contrast with coronal and sa gittal reformats. FINDINGS: The liver, gallbladder, pancreas, spleen, adrenal glands and kidneys are normal in appearan ce. No nephrolithiasis or hydronephrosis. The ureters are incompletely visualized. The abdominal ao rta is within normal limits in diameter. The appendix is normal in appearance. There is fecal stasis in the colon. No bowel obstruction. No free fluid or free air in the abdomen or pelvis. The bladde r is adequately filled with no abnormality identified. The uterus is surgically absent. There is a 4. 1 cm fluid density cyst in the left adnexa. There are phleboliths in the lower pelvis. The bones and soft tissues are unremarkable. Impression: 4.1 cm simple left adnexal cyst. Fecal stasis in the colon. No nephrolithiasis or hydronephrosis. The ureters are incompletely visualized and a nonobstructive u reterolith cannot be excluded. Hysterectomy.
[2018-01-14] MEDS ORDERED: NITROSTAT SL STA (23:23)
[2018-01-14] MEDS ORDERED: GI COCKTAIL PO STA (23:39)
--- NOTE | 2018-01-15 06:02 | DI ---
Exam: Two views of the chest. Comparison: 01/21/2017. Reason for exam: Chest pain. FINDINGS: No pneumothorax, pleural effusion, or focal consolidation. The cardiac silhouette is not enlarged. The imaged osseous structures appear grossly unremarkable without acute fracture. Impression: No acute cardiopulmonary process.
== END 2018-01-15 01:04 | disposition home or self-care (01) ==
LOC: ED 21:25
DX: R10.13 Epigastric pain (principal); R07.9 Chest pain, unspecified; E78.5 Hyperlipidemia, unspecified; F17.210 Nicotine dependence, cigarettes, uncomplicated
CPT/HCPCS: 36415; 74176; 80053; 81001; 82150; 82550; 83690; 84484; 85025; 85379; 93005; 93010; 96361; 96374; 96375; 99283

== ENCOUNTER 2018-02-21 15:38 | Outpatient (CLI) | END 2018-02-21 15:39 | disposition home or self-care (01) | LOC: RHC-LAB 15:38 | PROVIDERS: ATTEND Nurse Practitioner Family | DX: R05 Cough (principal); J02.9 Acute pharyngitis, unspecified | CPT/HCPCS: 87502; 87651 ==

== ENCOUNTER 2018-11-30 19:12 | Observation (INO) ==
[2018-11-30] MEDS ORDERED: ZOFRAN 4 MG/2 ML IVP STA (19:23)
[2018-11-30] MEDS ORDERED: SODIUM CHLORIDE 1,000 ML IV STA (19:23)
[2018-11-30] MEDS ORDERED: NITROSTAT SL STA (19:24)
--- NOTE | 2018-11-30 19:25 | ED.PDOC ---
General ED Provider: Dr. ADAMARIS HALE Chief Complaint: Chest Pain Stated Complaint: Patient is a 47 year old female who comes to the ER with a one week history of chest pain mostly after she eats. She stopped taking prilosec two weeks ago, Also use to take carafate but quit that too. She is heavy smoker but has been trying to cut back. Time Seen by Physician: 19:22 Exam Limitations: No limitations Primary Care Provider: CHIKIS MCCLAIN Nursing and Triage Documentation Reviewed and Agree: Yes Does patient meet sepsis criteria?: Yes If yes, has appropriate treatment been initiated?: No System Inflammatory Response Syndrome: Not Applicable Sepsis Protocol: For patient's 13 years and over: Temp is 96.8 and below OR 101 and greater Pulse >90 BPM Resp >20/minute Acutely Altered Mental Status Are patient's symptoms suggestive of a new infection, such as: -Pneumonia -Skin, Soft Tissue -Endocarditis -UTI -Bone, Joint Infection -Implantable Device -Acute Abdominal Infection -Wound Infection -Meningitis -Blood Stream Catheter Infection -Unknown Cardiovascular Complaint Exam - Chest Pain Complaint/Exam Onset: Gradual Duration: 1 week Symptoms Are: Still present Timing: Intermittent Initial Severity: Severe Current Severity: Moderate Location: Reports: Left anterior Pain Radiates: Reports: Left shoulder, Left arm, Neck Character: Reports: Heaviness, Pressure Aggravating: Reports: None (but noticed few minutes after eating. ) Alleviating: Reports: None Associated Signs and Symptoms: Reports: Diaphoresis, Nausea, Palpitations, Short of air (associated with anxiety ). Denies: Vomiting, Cough Related History: Reports: Similar episode AMI/ACS Risk Factors: Reports: Obesity, Hypertension, Smoking Pulmonary Embolism Risk Factors: Reports: None Prior Care for this Complaint: No Recent Stress Test: Yes (two years ago ) Recent Echo/LV Function: No JVD Present: No Subcutaneous Emphysema Present: No Diminshed Breath Sounds: No Reproducible Chest Wall Pain: No Bilateral Pulses Present: No Unequal Pulses Noted: No If Risk Factors for AMI/ACS Consider: EKG, Cardiac Enzymes, Serial Studies, Oxygen, Aspirin Used Equipment Sales Representative Consulted: No Differential Diagnoses: Acute NC, ACS, Stable Angina, Chest Wall Pain, GI Diseasae Quality Indicators For Acute NC or Cardiac Chest Pain: EKG in 10min. Quality Indicator For Non-Traumatic Chest Pain/Syncope: EKG Performed Patient Advised to Stop Smoking: Yes Review of Systems - Review Of Systems Constitutional: Reports: No symptoms Eyes: Reports: No symptoms Ears, Nose, Mouth, Throat: Reports: No symptoms Respiratory: Reports: No symptoms Cardiac: Reports: Chest pain GI: Reports: Nausea. Denies: Vomiting : Reports: No symptoms Musculoskeletal: Reports: No symptoms Skin: Reports: No symptoms Neurological: Reports: Anxiety Endocrine: Reports: No symptoms Hematologic/Lymphatic: Reports: No symptoms All Other Systems: Reviewed and Negative Past Medical History - Past Medical History Endocrine: Reports: DM 2 (gestational ), Dyslipidemia Cardiovascular: Reports: None Respiratory: Reports: None Hematological: Reports: None Gastrointestinal: Reports: GERD Genitourinary: Reports: None Neuro/Psych: Reports: Anxiety Musculoskeletal: Reports: None Cancer: Reports: Breast - Surgical History General Surgical History: Reports: Hysterectomy, Tubal ligation, Other (breast lumpectomy, Right eye lens replacement. ) - Family History Family History: Reports: Unknown - Social History Smoking Status: Current every day smoker, Heavy tobacco smoker Hx Substance Use: No Alcohol Screening: Occasionally Physical Exam - Physical Exam Appearance: Ill-appearing, Obese Ill-appearing: Moderate Pain Distress: Moderate Eyes: LORENZA, EOMI, Conjunctiva clear ENT: Ears normal, Nose normal, Oropharynx normal Respiratory: Airway patent, Breath sounds clear, Breath sounds equal, Respirations nonlabored Cardiovascular: RRR, Pulses normal, No rub, No murmur GI/: Soft, Nontender, No masses, Bowel sounds normal, No Organomegaly Musculoskeletal: Normal strength, ROM intact, No edema, No calf tenderness Skin: Warm, Dry Neurological: Sensation intact, Motor intact, Alert, Oriented Psychiatric: Anxious Interpretation - Radiology Interpretation Radiology Interpretation By: ED Physician Radiology Results: Negative Exam Interpreted: Portable CXR - Peanut Farmer Rate: Normal Rhythm: Sinus Ectopy: None - EKG Interpretation Time of EKG #1: 19:19 Rate: Normal Rhythm: Sinus Ectopy: None ST Segment: Other (T- wave abnormaliites on V1-v3) Interpretation: Left Atrial Enlargement EKG Comparison: No significant changes (compared one done in dec 2017) Re-Evaluation - Re-Evaluation Time of Re-Evaluation: 19:55 Status: Improved Vital Signs Stable: Yes - Re-Evaluation Time of Re-Evaluation: 21:50 Status: Improved Vital Signs Stable: Yes Pain Level: pain gone Physician Notification - Case Discussed Physician Notified: Dr. Hernandez Time of Notification: 21:44 (admit and order Echo and Stress Echo with sestamibi for the morning. Place on Carafate and PPI) Critical Care Note - Critical Care Note Total Time (mins): 45 Course - Course Hematology/Chemistry: 11/30/18 19:28 11/30/18 19:28 Orders, Labs, Meds: Lab Review 11/30/18 11/30/18 11/30/18 19:25 19:28 19:28 WBC 7.70 RBC 4.16 L Hgb 12.8 Hct 37.3 MCV 89.7 MCH 30.8 MCHC 34.3 RDW Coeff of Jose 12.7 Plt Count 236 Immature Gran % (Auto) 0.3 Neut % (Auto) 57.0 Lymph % (Auto) 34.4 [place] % (Auto) 6.5 Eos % (Auto) 1.3 Baso % (Auto) 0.5 Immature Gran # (Auto) 0.0 Neut # (Auto) 4.4 Lymph # (Auto) 2.7 [place] # (Auto) 0.5 Eos # (Auto) 0.1 Baso # (Auto) 0.0 D-Dimer (Manual) 336.85 Sodium 138.9 Potassium 3.52 Chloride 101.6 Carbon Dioxide 26.4 Anion Gap 14.42 BUN 9.2 Creatinine 0.71 Estimated GFR (MDRD) 88.00 BUN/Creatinine Ratio 12.95 Glucose 84.9 Calcium 10.10 Total Bilirubin 0.50 AST 36.0 ALT 20.6 Alkaline Phosphatase 80.5 Total Creatine Kinase 39.7 Troponin I < 0.012 Total Protein 8.25 H Albumin 4.58 Globulin 3.67 Albumin/Globulin Ratio 1.24 Orders Category Date Time Status ECHOCARDIOGRAM 2D-M MODE Routine CARDIO 11/30/18 21:42 Ordered EKG-(ED ONLY) Stat CARDIO 11/30/18 19:23 Completed EKG-(IP & OP ONLY) Routine CARDIO 12/01/18 06:00 Ordered ACTIVITY .Up ad [place]ina CARE 11/30/18 21:43 Ordered INTAKE & OUTPUT Q8HR CARE 11/30/18 21:42 Ordered NPO REMINDER: IMAGING ONCE CARE 11/30/18 21:48 Ordered VITAL SIGNS Q4HR CARE 11/30/18 21:42 Ordered CARDIAC DIET DIETARY 11/30/18 Lunch Ordered ED APPLY O2 .ONCE EMERGENCY 11/30/18 19:23 Active ED IV/MEDIPORT/POWERPORT .ONCE EMERGENCY 11/30/18 19:23 Active CBC W/ AUTO DIFF DAILY@0600 LAB 12/01/18 06:00 Ordered CBC W/ AUTO DIFF DAILY@0600 LAB 12/02/18 06:00 Ordered CBC W/ AUTO DIFF Stat LAB 11/30/18 19:28 Completed CMP [COMPREHENSIVE METABOLIC PANEL] Stat LAB 11/30/18 19:28 Completed CREATINE KINASE Q8H LAB 12/01/18 03:45 Ordered CREATINE KINASE Q8H LAB 12/01/18 11:45 Ordered CREATINE KINASE Stat LAB 11/30/18 19:28 Completed D-DIMER Stat LAB 11/30/18 19:25 Completed PT WITH INR DAILY@0600 LAB 12/01/18 06:00 Ordered PT WITH INR DAILY@0600 LAB 12/02/18 06:00 Ordered TROPONIN I Q8H LAB 12/01/18 03:45 Ordered TROPONIN I Q8H LAB 12/01/18 11:45 Ordered TROPONIN I Stat LAB 11/30/18 19:28 Completed 0.9 % Sodium Chloride [Saline Flush] MEDS 11/30/18 19:23 Ordered 1 syr IVF PRN PRN Acetaminophen [Tylenol] MEDS 11/30/18 21:42 Ordered 650 mg PO Q4H PRN Aspirin [Aspirin Chewable] MEDS 11/30/18 19:35 Discontinued 162 mg PO ONCE STA Enoxaparin Sodium [Lovenox] MEDS 12/01/18 09:00 Ordered 40 mg SUBCUT DAILY Esomeprazole Sodium [Nexium IV] MEDS 12/01/18 09:00 Ordered 40 mg IVP BID Esomeprazole Sodium [Nexium IV] MEDS 11/30/18 19:35 Discontinued 40 mg IVP ONCE STA Mag-Al Plus//Lidocaine [Gi Cocktail] MEDS 11/30/18 19:35 Discontinued 30 ml PO ONCE STA Morphine Sulfate [Morphine 2 mg/ml Syringe] MEDS 11/30/18 21:42 Ordered 2 mg IVP Q4H PRN Nitroglycerin [Nitrostat] MEDS 11/30/18 19:24 Discontinued 0.4 mg SL ONCE STA Ondansetron HCl/Pf [Zofran 4 mg/2 ml] MEDS 11/30/18 19:23 Discontinued 4 mg IVP ONCE STA Ondansetron HCl/Pf [Zofran 4 mg/2 ml] MEDS 11/30/18 21:42 Ordered 4 mg IVP Q6H PRN Sodium Chloride 0.9% [Sodium Chloride] 1,000 ml MEDS 11/30/18 19:23 Active IV 75 mls/hr Sodium Chloride 0.9% [Sodium Chloride] 1,000 ml MEDS 11/30/18 22:00 Ordered IV 75 mls/hr Sucralfate [Carafate] MEDS 11/30/18 22:00 Ordered 1 gm PO QID RESUSCITATION STATUS Routine OTHERS 11/30/18 21:42 Ordered CHEST, 1V AP ONLY Stat RADS 11/30/18 19:23 Completed SEST HRT REST/STRESS/ NUC MED Routine RADS 12/01/18 07:00 Ordered Medications Generic Name Dose Route Start Last Admin Trade Name Freq PRN Reason Stop Dose Admin Acetaminophen 650 mg 11/30/18 21:42 Tylenol PO Q4H PRN Fever > 102 Enoxaparin Sodium 40 mg 12/01/18 09:00 Lovenox SUBCUT DAILY [place] Esomeprazole Magnesium 40 mg 12/01/18 09:00 Nexium Iv IVP BID [place] Sodium Chloride 1,000 mls @ 75 mls/hr 11/30/18 19:23 11/30/18 19:36 Sodium Chloride IV 12/01/18 08:42 75 mls/hr .[id number] STA Administration Sodium Chloride 1,000 mls @ 75 mls/hr 11/30/18 22:00 Sodium Chloride IV .[id number] [place] Morphine Sulfate 2 mg 11/30/18 21:42 Morphine 2 Mg/Ml Syringe IVP Q4H PRN Severe Pain Ondansetron HCl 4 mg 11/30/18 21:42 Zofran 4 Mg/2 Ml IVP Q6H PRN Nausea / Vomiting Sodium Chloride 1 syr 11/30/18 19:23 11/30/18 19:36 Saline Flush IVF 1 syr PRN PRN Administration To flush IV Discontinued Medications Generic Name Dose Route Start Last Admin Trade Name Freq PRN Reason Stop Dose Admin Al Hydroxide/Mg Hydroxide 30 ml 11/30/18 19:35 11/30/18 19:43 Gi Cocktail PO 11/30/18 19:36 30 ml ONCE STA Administration Aspirin 162 mg 11/30/18 19:35 11/30/18 19:45 Aspirin Chewable PO 11/30/18 19:36 162 mg ONCE STA Administration Esomeprazole Magnesium 40 mg 11/30/18 19:35 11/30/18 19:42 Nexium Iv IVP 11/30/18 19:36 40 mg ONCE STA Administration Nitroglycerin 0.4 mg 11/30/18 19:24 11/30/18 19:35 Nitrostat SL 11/30/18 19:25 0.4 mg ONCE STA Administration Ondansetron HCl 4 mg 11/30/18 19:23 11/30/18 19:35 Zofran 4 Mg/2 Ml IVP 11/30/18 19:24 4 mg ONCE STA Administration Vital Signs: Temp Pulse Resp BP Pulse Ox 11/30/18 20:21 78 19 127/79 98 11/30/18 19:56 61 15 114/84 99 11/30/18 19:34 91 H 18 134/92 H 96 11/30/18 19:15 99.2 F 89 20 134/93 H 99 SAMARIA Risk Score Age >/= 65: No >/= 3 CAD Risk Factors: Yes Known CAD (Stenosis >/= 50%): No ASA Use in Past 7 Days: Yes Severe Angina (>/= 2 episodes in 24 hours): Yes EKG ST Changes >/= 0.5mm: No Postive Cardiac Marker: No SAMARIA Total Score: 3 SAMARIA Risk Score: Risk Score Odds of by 30D 0 0.1 (0.1-0.2) 1 0.3 (0.2-0.3) 2 0.4 (0.3-0.5) 3 0.7 (0.6-0.9) 4 1.2 (1.0-1.5) 5 2.2 (1.9-2.6) 6 3.0 (2.5-3.6) 7 4.8 (3.8-6.1) Departure - Departure Time of Disposition: 21:50 Disposition: ADMITTED INPATIENT Discharge Problem: Chest pain Condition: Stable Pt referred to PMD for follow-up: Yes IPMP verified?: No Allergies/Adverse Reactions: Allergies Sulfa (Sulfonamide Antibiotics) Allergy (Severe, Verified 11/30/18 19:30) stomach pains Home Medications: Ambulatory Orders Aspirin [Aspir 81] 81 mg PO DAILY tab-cap 11/01/16 Omeprazole 20 mg PO DAILY PRN 01/14/18 Cetirizine HCl [Zyrtec] 10 mg PO DAILY 11/30/18 Pseudoephedrine HCl [Sudafed] 30 mg PO DAILY PRN 11/30/18 Disposition Discussed With: Patient, Family
[2018-11-30] MEDS ORDERED: GI COCKTAIL PO STA (19:35)
[2018-11-30] MEDS ORDERED: NEXIUM IV IVP STA (19:35)
[2018-11-30] MEDS ORDERED: ASPIRIN CHEWABLE PO STA (19:35)
--- NOTE | 2018-11-30 19:58 | DI ---
EXAM: Single View Chest HISTORY: Chest pain COMPARISON:01/14/2018 FINDINGS: No definitive focal infiltrates, pneumothorax or effusions are identified. Cardiac size is within no rmal limits. Mediastinal silhouette appears stable. Bony structure evaluation is limited on single view. IMPRESSION: No definite acute cardiopulmonary process identified.
[2018-11-30] MEDS ORDERED: MORPHINE 2 MG/ML SYRINGE IVP PRN (21:42)
[2018-11-30] MEDS ORDERED: TYLENOL PO PRN (21:42)
[2018-11-30] MEDS ORDERED: ZOFRAN 4 MG/2 ML IVP PRN (21:42)
[2018-11-30] MEDS ORDERED: CARAFATE PO SCH (22:00)
[2018-11-30] MEDS ORDERED: SODIUM CHLORIDE 1,000 ML IV SCH (22:00)
[2018-11-30 22:36] VITALS: BMI 31.3
[2018-11-30] MEDS ORDERED: PROAIR HFA IH PRN (22:56)
[2018-12-01 05:15] VITALS: BP 116/77; TEMP 98.1
[2018-12-01] MEDS ORDERED: ASPIRIN EC PO SCH (08:00)
[2018-12-01] MEDS ORDERED: CLARITIN PO SCH (09:00)
[2018-12-01] MEDS ORDERED: NEXIUM IV IVP SCH (09:00)
[2018-12-01] MEDS ORDERED: LOVENOX SUBCUT SCH (09:00)
[2018-12-01] MEDS ORDERED: NON-FORMULARY MEDICATION (Cetirizine Hcl [Zyrtec] 10 MG) PO SCH (09:00)
--- NOTE | 2018-12-01 11:07 | NM ---
Exam: Myocardial perfusion study. Date: 12/01/2018. Comparison: None. HISTORY: Chest pain. TECHNIQUE: The patient was exercised using the Harsh protocol. The patient achieved 7.0 mets and 85 % of predicted maximum heart rate. With the patient at maximum tolerated treadmill stress, 24.2 mCi of technetium 99m sestamibi was injected and SPECT myocardial perfusion imaging begun within 60 minut es. For comparison, resting study was performed following injection of 10 mCi of technetium 99m sest amibi. Stress gated acquisition was acquired as part of the study to evaluate for regional wall tanesha on as well as to give an estimation of the left ventricular ejection fraction. FINDINGS: There is a normal physiologic uptake of the radiotracer. The wall motion is normal. The LVEF is estimated at 74%. Impression: Normal study. No stress-induced ischemic changes. Normal wall motion with an LVEF eddie mated at 74%.
[2018-12-01] MEDS: CARAFATE PO SCH ×2 (11:08)
[2018-12-01] MEDS ORDERED: PROAIR HFA IH PRN (11:49)
--- NOTE | 2018-12-01 14:48 | PN ---
11/30/18: Level 5 12/01/18: Observation 24 hours. MTDD
--- NOTE | 2018-12-04 11:41 | STRESSECHO ---
Date of Test: 12/01/18 Ordering Physician: DR. SHOSHANA TREJO, HOSPITALIST Occupation:HOMEMAKER Reason for Exam: CHEST PAIN, ANGINA, LEFT JAW PAIN, HTN Smoking History: 40 PK/ YR Height: 62" Weight: 171 LBS Current Medications: PROAIR, OMEPRAZOLE, ZYRTEC Resting EKG: SINUS RHYTHM, NO ACUTE CHANGES Target Heart Rate: 147/173 S-T SEGMENT STAGE MPH/GRADE HEART RATE BPM BLOOD PRESSURE MMHG RHYTHM +/- ELEVATION DEPRESSION SYMPTOMS AT REST 60 BPM 120/68 MMHG SR X NONE 1 1.7/10% 130 BPM 132/60 MMHG SR X NONE 2 2.5/12% 3 3.4/14% 4 4.2/16% 5 5.0/18% Immediately After 150 BPM SR X FATIGUE Minutes Post Exercise 5:00 65 BPM 126/70 MMHG SR X NONE Minutes Post Exercise DURATION OF EXERCISE: 5:01 MAXIMUM HEART RATE REACHED: 150 BPM REASON FOR TERMINATION: FATIGUE 98% OXYGEN SATURATION WITH EXERCISE ON ROOM AIR METS 7.0 INTERPRETATION: 1. NO EVIDENCE OF ISCHEMIA BY ST-T WAVE CHANGES 2. NO CHEST PAIN OR DISCOMFORT 3. BLOOD PRESSURE RESPONSE: NORMAL 4. NO ARRHYTHMIAS MTDD
--- NOTE | 2018-12-04 11:43 | ECHOSTRESS ---
Date of Exam: 12/01/18 Ordering Physician: DR. SHOSHANA TREJO--HOSPITALIST Reason for Echo: CHEST PAIN, STRESS TEST--NO ISCHEMIA M-Mode Normal Adult Results LV Dimensions Normal Adult Results AoV Opening excursions >1.6 LVEDD-base- 3.5-5.8 Ao root dimensions 2.0-3.7 LVESD-base- 3.1-4.6 L. Atrium dimensions 1.9-3.8 Post. Wall thickness 0.8-1.1 IV septum (thickness) 0.7-1.2 Post. Wall excursion 0.72-1.3 Septal motion Systolic motion R. Ventricular cavity 1.5-2.0 LVEF 60% Paradoxical septal wall motion 2-D: NORMAL LEFT VENTRICLE CONTRACTILITY--RESTING AND POST EXERCISE M-MODE: MV: AV: TV: PV: CHAMBER SIZE: WALL MOTION: NORMAL LEFT VENTRICLE CONTRACTILITY--RESTING AND POST EXERCISE PERICARDIUM: INTERPRETATION: 1. NORMAL LEFT VENTRICLE CONTRACTILITY--RESTING AND POST EXERCISE MTDD
--- NOTE | 2018-12-04 11:46 | ECHO2D ---
Date of Exam: 12/01/18 Ordering Physician: DR. SHOSHANA TREJO, HOSPITALIST Room # : [id number] Reason for Echo: CHEST PAIN, ANGINA, LEFT JAW PAIN, HTN M-Mode Normal Adult Results LV Dimensions Normal Adult Results AoV Opening excursions >1.6 >1.6 LVEDD-base- 3.5-5.8 4.7 Ao root dimensions 2.0-3.7 3.6 LVESD-base- 3.1-4.6 L. Atrium dimensions 1.9-3.8 3.6 Post. Wall thickness 0.8-1.1 1.1 IV septum (thickness) 0.7-1.2 1.2 Post. Wall excursion 0.72-1.3 NORMAL Septal motion NORMAL Systolic motion R. Ventricular cavity 1.5-2.0 NORMAL LVEF 60% 63% Paradoxical septal wall motion NORMAL 2-D : 2-D M Mode Echocardiogram was performed using apical four chamber and left parasternal long and short axis views. Mitral, tricuspid and aortic valves appear to be normal. Contractility of the left ventricle seems to be normal, so is the cavity size. Left atrial cavity size and aortic root appear to be normal. There is no pericardial effusion. There is no thrombus noted in the left ventricular or left aortic cavity. No mitral valve prolapse noted. M-MODE: MV: NORMAL AV: NORMAL TV: NORMAL PV: CHAMBER SIZE: NORMAL WALL MOTION: NORMAL PERICARDIUM: NORMAL INTERPRETATION: 1. BORDERLINE LEFT VENTRICULAR HYPERTROPHY 2. NORMAL VALVES 3. NORMAL LEFT VENTRICULAR CONTRACTILITY MTDD
--- NOTE | 2018-12-04 12:29 | SSS ---
DATE OF SERVICE: 12/01/18 OBSERVATION REASON FOR CONSULTATION/ADMISSION: Chest pain HISTORY OF PRESENT ILLNESS: Onset of sharp, intermittent mid-chest pain on 11/25/18. ON 11/30/18 chest pressure and tightness with radiation left jaw and left shoulder/arm. Pain normally occurs with eating. Took ASA times two at home. REVIEW OF SYSTEMS: CONSTITUTIONAL: No night sweats. No fatigue, malaise, lethargy. No fever or chills. HEENT: Eyes: No visual changes. No eye pain. No eye discharge. ENT: No runny nose. No epistaxis. No sinus pain. No sore throat. No odynophagia. No ear pain. No congestion. RESPIRATORY: No cough, no congestion. No hemoptysis. No shortness of breath. Difficulty taking a deep breath. CARDIOVASCULAR: No angina symptoms. No CHF symptoms. Chest pain. No palpitations. No orthopnea. GASTROINTESTINAL: No abdominal pain. Nausea. No vomiting. No diarrhea or constipation. No hematemesis. No hematochezia. GENITOURINARY: No dysuria. No hematuria. No obstructive symptoms. No discharge. No pain. No significant abnormal bleeding. MUSCULOSKELETAL: No musculoskeletal pain. No joint swelling. NEUROLOGICAL: Awake, alert, oriented to time, place and person. Headache. No neck pain. No syncope. No seizures. No dizziness. PSYCHIATRIC: Not anxious. No depression. No suicidal thoughts. No homicidal thoughts. SKIN: No rash. No lesions. No wounds. ENDOCRINE: No unexplained weight loss. No weight gain. HEMATOLOGIC/LYMPHATIC: No anemia. No purpura. No petechiae. No prolonged or excessive bleeding. No palpable lymph nodes. PAST HISTORY: Anemia High lipids GERD Anxiety History of kidney infections Chronic bronchitis Lump removed left axilla Tubal ligation Hysterectomy PERSONAL/FAMILY HISTORY/SOCIAL HISTORY: and lives with spouse. No current DME. Occasional alcohol use. Have tobacco use-2.-2 1/2 pack per day and down to one pack per day. Recently stopped Prilosec and Carafate. PHYSICAL EXAMINATION: GENERAL: The patient is female age 47. Height 62in, weight 171. BMI 31. VITAL SIGNS: Temperature 98, pulse 62, respiratory rate 16, blood pressure 85. 95% oxygen saturation on room air. HEENT: Head normocephalic, atraumatic. Eyes: Extraocular muscles are intact. Pupils are equal, round and reactive to light and accommodation. Ears: No lesions. Nose appeared normal. Throat: No exudate or erythema. NECK: Supple. No JVD, no carotid bruit. No lymphadenopathy or thyromegaly. LUNGS: Clear to auscultation. Percussion note normal. Chest symmetrical. HEART: S1, S2, no S3. No murmurs. No cyanosis or clubbing. No ascites. Pulses: Dorsalis pedis and posterior tibial pulses +1 to +2 bilaterally. ABDOMEN: Soft. Nontender. Bowel sounds active. No CVA tenderness. No mass felt. EXTREMITIES: No edema. Full range of motion of all extremities, equal. NEUROLOGIC: No focal deficit. Cranial nerves II through XII are grossly intact. No headache, no double vision or headache. SKIN: Not dry. Intact. Turgor - normal. LYMPHATIC: No palpable lymph nodes/no lymphedema. MUSCULOSKELETAL: Normal joints with no swelling. Muscle tone is normal. Office records reviewed: Yes. EDUCATION CARRIED OUT ABOUT: CAD and it's risk factors ALLERGIES: Sulfa MEDICATIONS: Albuterol HFA Aspirin Cetirizine Prilosec (stopped) Sudafed PRN LABS/EKG'S/X-RAY/ECHO/ABG: WBC, Hgb, Hct are within normal limits. D-Dimer 336.85, BNP within normal limits. T. Protein 8.5, CPK, Troponin within normal limits times two. Chest x- ray no about findings. EKG Sinus rhythm. ST-T wave changes. Precordial lead unchanged. HOSPITAL COURSE: Niurka Desai was hospitalized with chest pain and chest heaviness. The patient has stopped taking her Carafate and Protonix. Chest pain according to her was somewhat different. She was put in the hospital. The patient's EKG shows ST-T wave change which she had it even before. Three years ago her stress echo was negative for ischemia. EKG remained unchanged. There has been no arrhythmias. Stress echo was negative for ischemia. Stress sestamibi was negative for ischemia. The patient is up and about asymptomatic. She was discharged home. Counseling for smoking done. Risk factors for coronary artery disease discussed in detail. Her lipid profile unknown. Her non HDL should be close to 100. CONDITION: Stable. FINAL DIAGNOSIS: 1. Chest pain seems to be noncardiac 2. Gastroesophageal reflux disease 3. Heavy smoking with chronic lung disease 4. Lipid profile, unknown RECOMMENDATIONS/PLAN: 1. Discharge home 2. Restart Protonix and Carafate 3. Lipid profile+not known 4. Follow up with PCP next week. 5. Stress echo sestamibi, no ischemia 6. Non-HDL goal 100 Lipid profile TIME SPENT: More than 70 minutes. MTDD
== END 2018-12-01 13:20 | disposition home or self-care (01) ==
LOC: ED 19:12 → UNDOADMOB 21:48 → MEDSURG B 21:48 → INTOOBSV 21:49 → MEDSURG B 21:49 → UNDOADMOB 21:49
PROVIDERS: ADMIT Internal Medicine; ATTEND Internal Medicine
DX: K21.9 Gastro-esophageal reflux disease without esophagitis (principal); F41.9 Anxiety disorder, unspecified; R61 Generalized hyperhidrosis; R11.0 Nausea; R00.2 Palpitations; R06.02 Shortness of breath; R51 Headache
CPT/HCPCS: 36415; 80053; 82550; 84484; 85025; 85379; 85610; 93005; 93010; 96361; 96374; 96375; 99285